=== PATIENT | female | born 1965 | race Caucasian/White ===

== ENCOUNTER 2017-03-30 16:01 | Inpatient (IN) | payer OTHER ==
[~2017-03-30] VITALS: Ht 170.2 cm; Wt 73.6 kg
[2017-03-30 16:43] LABS: EOSINOPHIL (%) 1.9 % (0-5); EOSINOPHIL COUNT 0.2 K/uL (0-0.3); HEMATOCRIT 44.5 % (36.0-46.0); IMMATURE GRANULOCYTE (%) 0.4 % (0.0-0.7); INSTRUMENT ABS NEUTROPHIL CT 6.5 K/uL; LYMPHOCYTE COUNT 1.9 K/uL (1.0-2.8); MCH 29.7 PG (29.0-34.0); MCHC 33.5 G/DL (30.0-36.0); MCV 88.8 FL (83-99); MEAN PLAT.VOLUME 10.9 uM^3 (9.5-12.4); MONOCYTE (%) 4.3 % (3-12); MONOCYTE COUNT 0.4 K/uL (0-0.8); NEUTROPHIL (%) 72.1 % (45-76); NEUTROPHIL COUNT 6.5 K/uL (1.8-6.4); PLATELET COUNT 229 K/uL (156-360); RBC DIS.WIDTH-CV 13.8 % (11.8-14.6); RBC DIS.WIDTH-SD 44.5 % (39-53); RED BLOOD COUNT 5.01 M/uL (3.80-5.20); WHITE BLOOD COUNT 9.1 K/uL (4.1-10.2)
[2017-03-30 16:52] LABS: CHLORIDE 106 mEq/L (99-109); POTASSIUM 3.5 mEq/L (3.7-5.4); SODIUM 139 mEq/L (136-147)
[2017-03-30 16:55] LABS: GLUCOSE 114 mg/dL (70-99)
[2017-03-30 16:56] LABS: ANION GAP 12 MEQ/L (2-14)
[2017-03-30 16:57] LABS: TOTAL BILIRUBIN 0.5 mg/dL (0.0-1.0)
[2017-03-30 16:58] LABS: ALKALINE PHOSPHATASE 138 IU/L (3-129); GFR ESTIMATE (CALCULATED) > 59 mL/min/
[2017-03-30 16:59] LABS: UREA NITROGEN (BUN) 22 mg/dL (9-23)
[2017-03-30 17:04] LABS: TROP-I INTERPRETATION NEGATIVE; TROPONIN-I < 0.01 ng/mL (0.0-0.30)
[2017-03-30] MEDS ORDERED: DAILY MULTIPLE1 EACH PO (17:27)
[2017-03-30] MEDS ORDERED: OMEGA 3 500 SO1 EACH PO (17:28)
[2017-03-30] MEDS ORDERED: CALICUM 500+D1 EACH PO (17:28)
[2017-03-30] MEDS ORDERED: CLARITIN10 M3 PO (17:29)
[2017-03-30] MEDS ORDERED: K-TAB ER8 MEQ PO (17:29)
[2017-03-30 17:43] LABS: LIPASE 3442 U/L (1.0-51.0)
[2017-03-30 19:24] LABS: ADD MIUA? YES; BILIRUBIN NEGATIVE; BLOOD NEGATIVE; COLOR YELLOW ((YELLOW)); GLUCOSE (STRIP) NEGATIVE; KETONES 20; LEUKOCYTES SMALL; NITRITE NEGATIVE; PROTEIN (STRIP) NEGATIVE; SPECIFIC GRAVITY 1.014 (1.000-1.030); UROBILINOGEN 0.2 MG/DL (0.2-1.0)
[2017-03-30] MEDS ORDERED: CALCIUM 500 MG1 EACH PO (19:53)
[2017-03-30] MEDS ORDERED: POTASSIUM-9999 MG PO (19:53)
[2017-03-30] MEDS ORDERED: ALEVE220 MG PO (19:54)
[2017-03-30 20:27] LABS: BACTERIA 1+ /HPF; CASTS NONE SEEN /LPF; CRYSTALS NONE SEEN; EPITHELIAL CELLS 2+ /HPF; MUCUS RARE /LPF; RED BLOOD CELLS 0-5 /HPF (0-5); UCUL ADDED? NO; WHITE BLOOD CELLS 15-20 /HPF (0-5)
[2017-03-30 23:14] VITALS: BP 110/55
[2017-03-31 02:56] VITALS: BP 107/67
[2017-03-31 07:23] LABS: HEMATOCRIT 38.4 % (36.0-46.0); MCH 29.3 PG (29.0-34.0); MCHC 32.6 G/DL (30.0-36.0); MCV 90.1 FL (83-99); PLATELET COUNT 207 K/uL (156-360); RBC DIS.WIDTH-CV 14.1 % (11.8-14.6); RBC DIS.WIDTH-SD 46.6 % (39-53); RED BLOOD COUNT 4.26 M/uL (3.80-5.20); WHITE BLOOD COUNT 7.5 K/uL (4.1-10.2)
[2017-03-31 07:27] LABS: ALKALINE PHOSPHATASE 102 IU/L (3-129); ANION GAP 6 MEQ/L (2-14); CHLORIDE 112 MEQ/L (99-109); GFR ESTIMATE (CALCULATED) > 59 mL/min/; GLUCOSE 83 mg/dL (70-99); POTASSIUM 3.8 MEQ/L (3.7-5.4); SAMPLE HEMOLYSIS CHECK 0; SAMPLE ICTERIC CHECK 0; SAMPLE LIPEMIA CHECK 0; SODIUM 142 MEQ/L (136-147); TOTAL BILIRUBIN 0.4 MG/DL (0.0-1.0); UREA NITROGEN (BUN) 12 mg/dL (9-23)
[2017-03-31 07:40] VITALS: BP 118/70
[2017-03-31 11:35] VITALS: BP 112/67
[2017-03-31 15:25] VITALS: BP 120/75
[2017-03-31 23:24] VITALS: BP 105/68
[2017-04-01 08:15] VITALS: BP 125/76
== END 2017-04-01 11:57 | disposition home or self-care (01) | DRG 918 ==
LOC: EME 16:01 → 2EAST 22:11 → EDOF 22:11 → 2EAST 23:07
PROVIDERS: Emergency Medicine; Internal Medicine
DX: T62.91XA Toxic effect of unspecified noxious substance eaten as food, accidental (unintentional), initial encounter (principal); A08.4 Viral intestinal infection, unspecified; E87.6 Hypokalemia; R82.71 Bacteriuria; K21.9 Gastro-esophageal reflux disease without esophagitis; Z86.19 Personal history of other infectious and parasitic diseases; Z88.1 Allergy status to other antibiotic agents
CPT/HCPCS: 74177; 80053; 81003; 82150 91; 83690; 84484; 85025; 85027; 93005; 99281; 99285; J1644; J2405; J3010; J3480; J7030; S0028